=== PATIENT | female | born 1995 | race Caucasian/White ===

== ENCOUNTER 2022-06-04 13:43 | Emergency (ER) | payer BC, SELFPAY ==
[2022-06-04 13:59] VITALS: BP 128/70; PULSE 89; RESP 16; TEMP 36.7; O2SAT 98
[2022-06-04 14:01] VITALS: BP 128/70; PULSE 89; RESP 16; TEMP 36.7; O2SAT 98
--- NOTE | 2022-06-04 14:34 | ED.EYEPROB ---
HPI - Eye Problem General Chief complaint: Eye Problems Stated complaint: scratched left eye Time Seen by Provider: 06/04/22 14:15 Source: patient, RN notes reviewed and old records reviewed Mode of arrival: ambulatory Limitations: no limitations History of Present Illness HPI Narrative: 26-year-old female who presents to [facility] care with complaints of left eye pain after something flying into her left eye last night. Patient describes scratchy feeling in her left eye with increased watering. Patient states that she is experiencing some photosensitivity to her left eye and vision is a little blurry, denies any sharp pain to her left eye. Patient reports that she has used some OTC eye drops to her left eye without improvement in her symptoms. MD chief complaint: eye pain, eye redness and foreign body (feeling left eye) Onset (ago): day(s) (last pm) Onset description: sudden Location: left eye Severity scale (1-10): 7 Treatments Prior to Arrival: OTC eye drops Related Data Home Medications Medication Instructions Recorded Confirmed dextroamphetamine-amphetamine 5 mg 5 mg PO DAILY 06/04/22 06/04/22 tablet Allergies Allergy/AdvReac Type Severity Reaction Status Date / Time No Known Allergies Allergy Verified 06/04/22 14:01 Review of Systems Review of Systems: CONSTITUTIONAL: Denies fever, chills, or sweats. EYES: Some blurring of vision left eye,positive for redness left eye no discharge, positive for increased watering and photosensitivity, or discharge. ENT: Denies rhinorrhea, congestion, sore throat, or otalgia. CARDIOVASCULAR: Denies chest pain, palpitations, or edema. RESPIRATORY: Denies cough or dyspnea. GASTROINTESTINAL: Denies abdominal pain, nausea, vomiting, or diarrhea. GENITOURINARY: Denies dysuria or hematuria. SKIN: Denies rash or itching. MUSCULOSKELETAL: Denies back pain, joint pain, or myalgia. NEUROLOGIC: Denies headache, numbness, or weakness. PSYCHIATRIC: Denies anxiety or depression. All systems reviewed & are unremarkable except as noted in HPI and below PMFSH Past Medical History Medical History (Updated 06/07/22 @ 14:43 by Amber Arredondo NP) ADHD (attention deficit hyperactivity disorder) Social History Social History (Updated 06/07/22 @ 14:44 by Amber Arredondo NP) Tobacco type: e-cigarettes/vaping Additional smoking assessment comments: smoked cigarettes for 3 years has vaped for 2 years Alcohol intake: current Alcohol use details: social Substance use type: does not use Living arrangements: with family Gender identity (if verbalized by the patient): Female Comments At time of signature, agree with nursing past medical, surgical, social and family history. There is no relevant family history pertinent to the presenting complaint Exam Narrative: GENERAL: Well-appearing, well-nourished, and in no acute distress. HEAD: Normocephalic, atraumatic. EYES: PERRLA and EOMI. left sclera redness, eye is watering, scratchy feeling, no acute sharp pain, some photophobia ENT: Nares clear, no rhinorrhea or epistaxis. Mucous membranes moist.TM's normal, throat pink with no lesions or exudates, no swelling noted. NECK: Supple.no lymphadenopathy CHEST: Clear to auscultation. No respiratory distress.SAO2 98% on room air HEART: Regular rate and rhythm. No murmur heard. Normal peripheral pulses. ABDOMEN: Soft, nontender, nondistended, normal active bowel sounds. EXTREMITIES: Normal range of motion. No edema. SKIN: Warm, dry, no rash. NEURO: No focal deficits. Alert and oriented x3. Course Course Level of Care: Express Care Visit Vital Signs Vital signs: Vital Signs Temperature 36.7 C 06/04/22 13:59 Pulse Rate 89 06/04/22 13:59 Respiratory Rate 16 06/04/22 13:59 Blood Pressure 128/70 06/04/22 13:59 Pulse Oximetry 98 06/04/22 13:59 Oxygen Delivery Room Air 06/04/22 13:59 Temperature 36.7 C 06/04/22 14:01 Pulse Rate 89 06/04/22 14:01 Respirato
== END 2022-06-04 14:58 | disposition home or self-care (01) ==
PROVIDERS: Emergency Provider Registered Nurse; PCP Hospitalist
DX: S05.02XA Injury of conjunctiva and corneal abrasion without foreign body, left eye, initial encounter (principal); X58.XXXA Exposure to other specified factors, initial encounter; F17.290 Nicotine dependence, other tobacco product, uncomplicated; F90.9 Attention-deficit hyperactivity disorder, unspecified type
CPT/HCPCS: 99213; A9270; G0463

== ENCOUNTER 2023-06-06 12:19 | Emergency (ER) | payer BC, SELFPAY ==
[2023-06-06 12:24] VITALS: BP 122/87; PULSE 82; RESP 20; TEMP 36.6; O2SAT 100
[2023-06-06 12:35] VITALS: BP 122/87; PULSE 82; RESP 20; TEMP 36.6; O2SAT 100
--- NOTE | 2023-06-06 12:37 | ED.EYEPROB ---
HPI - Eye Problem General Chief complaint: Eye Problems Stated complaint: Right eye Source: patient and RN notes reviewed Mode of arrival: ambulatory Limitations: no limitations History of Present Illness HPI Narrative: Patient is a 27-year-old female who presents to the [facility] with complaints of right eye irritation and redness. Patient states that she noted some redness to the right eye yesterday but it worsened upon waking this morning. Patient states that she has noted some drainage throughout the day but woke up this morning with her eye matted shut. She denies any known injury to the eye. Denies recent fevers.. Denies visual disturbance. Related Data Home Medications Medication Instructions Recorded Confirmed dextroamphetamine-amphetamine ER 12.5 mg PO DAILY 06/06/23 06/06/23 12.5 mg capsule, 3 bead, ext rel 24hr (Mydayis) Allergies Allergy/AdvReac Type Severity Reaction Status Date / Time No Known Allergies Allergy Verified 06/06/23 12:33 Review of Systems Review of Systems: CONSTITUTIONAL: Denies fever, chills, or sweats. EYES: Denies visual changes. Reports right eye redness and drainage. ENT: Denies otalgia and sore throat CARDIOVASCULAR: Denies chest pain, palpitations, or edema. RESPIRATORY: Denies cough or dyspnea. GASTROINTESTINAL: Denies abdominal pain, nausea, vomiting, or diarrhea. GENITOURINARY: Denies dysuria or hematuria. SKIN: Denies rash or itching. MUSCULOSKELETAL: Denies back pain, joint pain, or myalgia. NEUROLOGIC: Denies headache, numbness, or weakness. Pertinent positives per HPI. COUNT INCLUDES THE [facility] Past Medical History Medical History ADHD (attention deficit hyperactivity disorder) Social History Social History Tobacco type: e-cigarettes/vaping Additional smoking assessment comments: smoked cigarettes for 3 years has vaped for 2 years Alcohol intake: current Alcohol use details: social Substance use type: does not use Living arrangements: with family Gender identity (if verbalized by the patient): Female Comments At the time of my signature, I reviewed and agree with the nursing past medical, surgical, social, and family history. There is no relevant family history pertinent to the patient complaint. Exam Narrative: GENERAL: This is a well-nourished, well-developed patient, in no apparent distress. HEAD: normocephalic, atraumatic. EYES: Sclera clear/white on left. Conjunctiva injected on right. Drainage noted. Vision is grossly intact. EARS: External ears normal. Hearing grossly intact. NOSE: External nose normal with no obvious nasal discharge, nares without redness, no rhinorrhea. THROAT: Mucous membranes moist, posterior pharynx clear. NECK: Neck supple, non-tender without lymphadenopathy, masses or thyromegaly. CARDIOVASCULAR: Regular rate and rhythm without murmurs, gallops, or rubs. RESPIRATORY: Clear to auscultation. Breath sounds equal bilaterally. No wheezes, rales, or rhonchi. GASTROINTESTINAL: Abdomen soft, non-tender, nondistended. Bowel sounds are active. No hepato-splenomegaly, or palpable masses. No guarding. SKIN: warm, intact with no suspicious lesions or rash, good texture and turgor. NEURO: awake, alert, and oriented to person, place and time. There were no obvious focal neurologic abnormalities. Course Course Level of Care: Express Care Visit Vital Signs Vital signs: Vital Signs Temperature 97.9 F 06/06/23 12:24 Pulse Rate 82 06/06/23 12:24 Respiratory Rate 06/06/23 12:24 Blood Pressure 122/87 06/06/23 12:24 Pulse Oximetry 100 06/06/23 12:24 Oxygen Delivery Room Air 06/06/23 12:24 Temperature 97.9 F 06/06/23 12:35 Pulse Rate 82 06/06/23 12:35 Respiratory Rate 06/06/23 12:35 Blood Pressure 122/87 06/06/23 12:35 Pulse Oximetry 100 06/06/23 12:35 Oxygen Delivery Room Air
== END 2023-06-06 12:43 | disposition home or self-care (01) ==
PROVIDERS: Emergency Provider Nurse Practitioner
DX: H10.31 Unspecified acute conjunctivitis, right eye (principal); F17.290 Nicotine dependence, other tobacco product, uncomplicated; F90.9 Attention-deficit hyperactivity disorder, unspecified type
CPT/HCPCS: 99213; G0463

== ENCOUNTER 2023-08-17 22:52 | Emergency (ER) | payer BC, SELFPAY ==
[2023-08-17 22:59] VITALS: BP 132/84; PULSE 116; RESP 15; TEMP 36.6; O2SAT 100
--- NOTE | 2023-08-17 23:03 | ECG_ITS ---
Measurements Intervals [place] Rate: 99 P: 64 [place]: 152 QRS: 66 QRSD: 97 T: 46 QT: 333 QTc: 429 Interpretive Statements SINUS RHYTHM NORMAL ELECTROCARDIOGRAM NO PREVIOUS ECG AVAILABLE FOR COMPARISON Electronically Signed On 08-18-2023 13:19:10 [employer] by Irving Bronson M.D.
[2023-08-17 23:27] LABS: Basophils Percent Auto 0.6 % (0.2-1.2); Eosinophils Absolute Auto 0.3 K/mm3 (0-0.3); Eosinophils Percent Auto 4.2 % (0-4.4); Hematocrit 40.8 % (37.0-47.0); Hemoglobin 13.9 g/dL (12.0-15.0); Immature Granulocyte Absolute 0.01 K/mm3 (0.00-0.031); Immature Granulocyte Percent A 0.2 % (0-0.5); Lymphocytes Absolute Auto 2.18 K/mm3 (0.9-3.2); Lymphocytes Percent Auto 35.3 % (18.3-44.2); Mean Corpuscular HGB Conc 34.1 g/dl (32-36); Mean Corpuscular Hemoglobin 31.8 pg (26-34); Mean Corpuscular Volume 93.4 fl (80-100); Mean Platelet Volume 8.5 fl (7.4-10.4); Monocytes Absolute Auto 0.3 K/mm3 (0.1-0.6); Neutrophils Absolute Auto 3.4 K/mm3 (1.3-6.7); Neutrophils Percent Auto 55.7 % (45.5-73.1); Platelet Count Result 377 k/mm3 (150-375); Red Blood Count 4.37 M/mm3 (4.2-5.4); Red Cell Distribution Width 12.3 % (11.5-14.5); White Blood Count 6.2 K/mm3 (4.5-10.0)
[2023-08-17 23:29] LABS: Appearance Urine Clear (Clear); Bilirubin Urine Negative (Negative); Blood Urine Negative (Negative); Color Urine Yellow (Yellow); Glucose Urine UA Negative (Negative); Ketones Urine Negative (Negative); Leukocyte Esterase Ur Negative LEU/UL (Negative); Nitrate Urine Negative (Negative); Protein Urine Negative (Negative); Specific Grav Ur 1.006 (1.001-1.035); Urobilinogen Urine 0.2 mg/dL (<2.0); pH Urine 6.5 (5.0-9.0)
[2023-08-17 23:32] LABS: Add Urine Microscopic? NO
[2023-08-17 23:43] LABS: Alanine Aminotransferase 22 U/L (6-35); Albumin Level 4.7 g/dL (3.5-5.1); Alkaline Phosphatase 120 U/L (38-126); Anion Gap 15 mmol/L (8-16); Aspartate Amino Transferase 34 U/L (14-36); Bilirubin,Total 0.4 mg/dL (0.2-1.3); Blood Urea Nitrogen 7 mg/dL (7-17); Calcium 8.7 mg/dL (8.4-10.2); Carbon Dioxide 22 mmol/L (22-30); Chloride 106 mmol/L (98-107); Estimated CRCL calculation 99 ml/min; Estimated Glomerular Filt Rate > 60; Glucose 115 mg/dL (65-110); Potassium 3.7 mmol/L (3.4-5.0); Sodium 143 mmol/L (137-145)
[2023-08-17 23:46] LABS: Amphetamine Screen Urine Negative (Negative); Barbiturate Screen Urine Negative (Negative); Benzodiazepines Screen Urine Negative (Negative); Cannabinoid Screen Urine Positive (Negative); Cocaine Screen Urine Negative (Negative); Methadone Screen Urine Negative (Negative); Opiate Screen Urine Negative (Negative); Phencyclidine Screen Urine Negative (Negative)
[2023-08-17 23:57] LABS: Acetaminophen < 10 ug/mL (10-30); Salicylate < 1.0 mg/dL (2-20)
[2023-08-18 00:05] LABS: Influenza A QL RT-PCR Negative (Negative); Influenza B QL RT-PCR Negative (Negative); RSV RNA, RT-PCR Negative (Negative); SARS-CoV-2 RNA PCR Negative (Negative)
[2023-08-18 00:30] LABS: Ethanol 331 mg/dL (<10)
--- NOTE | 2023-08-18 03:19 | ED.GENADULT ---
HPI - General Adult General Chief complaint: Psychiatric Symptoms <Liborio Ledesma MD - Last Filed: 08/18/23 03:21> Stated complaint: si <Liborio Ledesma MD - Last Filed: 08/18/23 03:21> Time Seen by Provider: 08/17/23 23:04 <Liborio Ledesma MD - Last Filed: 08/18/23 03:21> History of Present Illness HPI narrative: patient 27-year-old female presents emerged from with chief complaint of suicidal ideation. Patient reports that she has been drinking heavily and reports that today she planned on overdosing. Patient states that currently she is not actively suicidal the patient reports that she has had a prior overdose before in the past <Liborio Ledesma MD - Last Filed: 08/18/23 03:21> Related Data Home medications: Home Medications Medication Instructions Recorded Confirmed dextroamphetamine-amphetamine ER 12.5 mg PO DAILY 06/06/23 06/06/23 12.5 mg capsule, 3 bead, ext rel 24hr (Mydayis) <Liborio Ledesma MD - Last Filed: 08/18/23 03:21> Allergies/adverse reactions: Allergies Allergy/AdvReac Type Severity Reaction Status Date / Time No Known Allergies Allergy Verified 06/06/23 12:33 <Liborio Ledesma MD - Last Filed: 08/18/23 03:21> Review of Systems Review of Systems: A 10 system review of systems was completed on the patient and is negative except for what is stated in the HPI. Nursing and ancillary documentation was reviewed. <Liborio Ledesma MD - Last Filed: 08/18/23 03:21> [facility] Past Medical History Medical History: Medical History ADHD (attention deficit hyperactivity disorder) <Liborio Ledesma MD - Last Filed: 08/18/23 03:21> Social History Social History: Social History Tobacco type: e-cigarettes/vaping Additional smoking assessment comments: smoked cigarettes for 3 years has vaped for 2 years Alcohol intake: current Alcohol use details: social Substance use type: marijuana Living arrangements: with family Gender identity (if verbalized by the patient): Female <Liborio Ledesma MD - Last Filed: 08/18/23 03:21> Exam Narrative: GENERAL: Well-appearing, well-nourished, and in no acute distress. HEAD: Normocephalic, atraumatic. EYES: PERRLA and EOMI. ENT: Nares clear, no rhinorrhea or epistaxis. Mucous membranes moist. NECK: Supple. CHEST: Clear to auscultation. No respiratory distress. HEART: Regular rate and rhythm. No murmur heard. Normal peripheral pulses. ABDOMEN: Soft, nontender, nondistended, normal active bowel sounds. EXTREMITIES: Normal range of motion. No edema. SKIN: Warm, dry, no rash. NEURO: No focal deficits. Alert and oriented x3. PSYCH: Normal mood and affect. <Liborio Ledesma MD - Last Filed: 08/18/23 03:21> Course Course Emergency Course: Signed out pending final dispo. Pt well appearing here. ETOH now 100. Medically clear for psych eval. Stable for transfer to psychiatry facility; accepted at [place]. <Rubi Ribeiro MD - Last Filed: 08/18/23 15:13> Vital Signs Vital signs: Vital Signs Temperature 97.8 F 08/17/23 22:59 Pulse Rate 116 H 08/17/23 22:59 Respiratory Rate 15 08/17/23 22:59 Blood Pressure 132/84 08/17/23 22:59 Pulse Oximetry 100 08/17/23 22:59 Oxygen Delivery Room Air 08/17/23 22:59 Temperature 97.8 F 08/17/23 22:59 Pulse Rate 106 H 08/18/23 08:19 Respiratory Rate 18 08/18/23 08:19 Blood Pressure 131/87 08/18/23 08:19 Pulse Oximetry 99 08/18/23 08:19 Oxygen Delivery Room Air 08/17/23 22:59 <Liborio Ledesma MD - Last Filed: 08/18/23 03:21> Vital Signs Temperature 97.8 F 08/17/23 22:59 Pulse Rate 116 H 08/17/23 22:59 Respiratory Rate 15 08/17/23 22:59 Blood Pressure 132/84
[2023-08-18 08:19] VITALS: BP 131/87; PULSE 106; RESP 18; O2SAT 99
--- NOTE | 2023-08-18 08:19 | PC.NURSE ---
VS as documented. Pt awake, A&OX4, calm and cooperative. Pt's mom and step dad now at bedside. Pt reports hx of bipolar, but stopped taking her meds a couple years ago, states she does not know why, and has not followed up since then. Reports extensive hx of depression and SI, denies any specific recent events to trigger this episode. Pt told RN she was making dinner last night when she suddenly had the impulsive thought to go in the closet and get a bunch of pills . Reports she has not had specific suicidal impulses before. Pt wanting help with her pyschiatric illness, motivated for treatment. RN explained the need for clinical sobriety prior to evaluation by Tammy. updated on pt status. Pt getting breakfast. Sitter remains at bedside.
[2023-08-18 10:33] LABS: Ethanol 98 mg/dL (<10)
--- NOTE | 2023-08-18 14:08 | PC.NURSE ---
accepted by dr noe report to [phone] [place]
[2023-08-18 16:40] VITALS: BP 128/84; PULSE 96; RESP 16; O2SAT 99
== END 2023-08-18 16:45 ==
PROVIDERS: Emergency Medicine; Emergency Provider Emergency Medicine
DX: R45.851 Suicidal ideations (principal); F10.129 Alcohol abuse with intoxication, unspecified; Y90.8 Blood alcohol level of 240 mg/100 ml or more; Z11.52 Encounter for screening for COVID-19; F90.9 Attention-deficit hyperactivity disorder, unspecified type; F17.290 Nicotine dependence, other tobacco product, uncomplicated
CPT/HCPCS: 36415; 80053; 80307; 81003; 81025; 84443; 85025; 87637; 93005; 99285